=== PATIENT | male | born 1965 | race Caucasian/White ===

== ENCOUNTER 2020-06-20 20:33 | Observation (INO) | payer OTHER, SELFPAY ==
[2020-06-20 20:05] VITALS: BP 143/94; PULSE 95; RESP 18; TEMP 35.7; O2SAT 100
[2020-06-20 20:27] VITALS: BMI 32.9
--- NOTE | 2020-06-20 20:36 | EKG12_ITS ---
Test Reason : CP ADMIT Blood Pressure : / mmHG Vent. Rate : 082 BPM Atrial Rate : 082 BPM P-R Int : 170 ms QRS Dur : 100 ms QT Int : 372 ms P-R-T Axes : 041 -06 060 degrees QTc Int : 434 ms Normal sinus rhythm Normal ECG Confirmed by PEDRO BOO, ANTHONY ([id number]), continuity editor MARY JO MISTRY ([id number]) on 06/22/2020 10:10:24 AM Referred By: Irina Luis Confirmed By:ANTHONY VASQUEZ MD
--- NOTE | 2020-06-20 20:39 | PCM.HP.STD ---
[facility] - General General Date of Admission: 06/20/20 HPI Narrative REMINGTON ART, is a 55 M with a significant history of COPD and asthma; hypertension; CAD status post stent; and diabetes mellitus who was transferred from outside hospital because of abnormal stress test. Patient reports a history of MA requiring stents on January 25, 2017. He reported that in the last 2 to 3 months he has been having intermittent chest pain. 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 The chest pain was persistent. He works [place] the street from [facility] [employer] so he went to [employer] to be evalauted. He denies any aggravating factor to her chest pain. However reported that with rest his chest pain improved. Because of abnormal stress test the case was discussed with cardiology at [facility] who was ready to follow patient for possible heart cath. At the time of evaluation at our hospital and while at rest he had mild pain at the substernal area.. [facility] Medical History Asthma COPD (chronic obstructive pulmonary disease) Depression Home Medications aspirin 81 mg PO/SL DAILY 06/20/20 [History Last Taken 06/20/20 09:00] atorvastatin 40 mg PO/SL DAILY 06/20/20 [History Last Taken 06/20/20 09:00] clopidogrel 75 mg PO DAILY 06/20/20 [History Last Taken 06/20/20 09:00] glimepiride 2 mg PO/SL BID 06/20/20 [History Last Taken 06/20/20 09:00] losartan 50 mg PO DAILY 06/20/20 [History Last Taken 06/20/20 09:00] metformin 500 mg PO/SL DAILY 06/20/20 [History Last Taken 06/19/20 21:00] metoprolol tartrate 50 mg PO/SL BID 06/20/20 [History Last Taken 06/20/20 09:00] Allergy/AdvReac Type Severity Reaction Status Date / Time No Known Allergies Allergy Verified 06/20/20 21:04 Family History Father Cancer Surgical History Stented coronary artery no surgical history Social History Smoking Status: Former smoker ROS Constitutional Constitutional: Denies anorexia or change in weight Eyes Eyes: Denies change in vision or double vision ENT HEENT: Denies dysphagia or headache(s) Cardiovascular Cardiovascular: Reports chest pain and lightheadedness Respiratory/Chest Respiratory/Chest: Denies cough or productive cough Gastrointestinal Gastrointestinal: Denies abdominal pain, constipation or diarrhea Genitourinary Genitourinary: Denies burning urination or difficulty urinating Musculoskeletal Musculoskeletal: Denies arthralgias or back pain Neurologic Neurologic: Denies abnormal speech or confusion Psychiatric Psychiatric: Denies anxiety or depression Endocrine Endocrinology: Denies change in body appearance or cold intolerance Hematologic/Lymphatic Hematologic/Lymphatic: Denies easy bleeding or easy bruising Physical Exam Narrative Alert and oriented x3 Nontraumatic; normocephalic Dyspnea; lung clear to auscultate Heart sounds S1-S2. No murmur, gallop or rubs. Abdomen bowel sounds present soft, nontender nondistended Extremity without edema cyanosis or clubbing. Assessment & Plan Assessment/Plan (1) Unstable angina: Status: Acute Code(s): I20.0 - Unstable angina Plan: Place on a monitored bed at the PCU Reportedly with abnormal stress test at outside hospital. ASA 81 mg p.o. daily continued SL NTG 0.4 mg prn as needed for chest pain ordered We will check lipid panel. Statin: High intensity statin continued Anticoagulation: Started on heparin from outside hospital and continued Anti-P2Y12 Receptor antibody: Plavix continued Losartan metoprolol continued EKG taking on admission. EKG tracing with no ST or T wave abnormalities. Cardiology consult. (2) Diabetes: Status: Acute Code(s): E11.9 - Type 2 diabetes mellitus without complications Plan: Hold home Metformin and glimepiride in the setting of n.p.o. status and patient being at candidate of cardiac cath. Accu-Chek with correction scale insulin ordered. (3) HTN (hypertension): Status: Chronic Code(s): I10 - Essential (primary) hypertension Plan: Hypertension Blood pressure is not within goal Losartan and metoprolol continued. Trend blood pressure and adjust blood pressure medications. OBSV E&M: [id number] Initial observation care L3
[2020-06-20 20:47] VITALS: PULSE 86
[2020-06-20 21:55] VITALS: O2SAT 96
[2020-06-20 21:55] LABS: Partial Thromboplast Time 40.7 Seconds (24.1-36.2)
[2020-06-20 22:34] VITALS: PULSE 81
[2020-06-20] MEDS: Metoprolol Tartrate 50 MG Tablet PO (22:34)
[2020-06-20] MEDS: Heparin Injection (Vial) 5,000 UNIT/ML VIAL IV (22:36)
[2020-06-20 22:46] LABS: Bedside Glucose 105 mg/dL (70-110)
[2020-06-20] MEDS: HEPARIN/D5w 25,000 UNITS 25,000 UNITS/250 ML IV.SOLN. 12 UNITS IV (23:08)
[2020-06-21] VITALS (17 sets, daily range): BP systolic 97–128; BP diastolic 61–77; PULSE 72–84; RESP 16–18; TEMP 36.3–36.9; O2SAT 94–99
[2020-06-21 04:59] LABS: Absolute Lymphocyte Count 2.76 X10^3/uL (0.83-4.51); Absolute Neutrophil Count 3.5 X10^3/uL (2.0-7.7); Basophil# 0.07 X10^3/uL; Eosinophil# 0.14 X10^3/uL; Hematocrit 44.6 % (40-54); Hemoglobin 14.7 g/dL (13.0-16.5); Lymphocyte # 2.76 X10^3/ul (0.83-4.51); Lymphocyte % 39.3 % (19-41); Mean Corpuscular Hgb 29.8 pg (27.0-32.0); Mean Corpuscular Volume 90.5 fL (80-94); Mean Platelet Vol. 9.9 fl (6.2-12.0); Monocyte# 0.52 X10^3/uL; Monocyte% 7.4 % (0-10); NRBC Flagged by Analyzer 0 % (0-5); Neutrophil # 3.51 X10^3/uL (2.7-7.7); Platelet Count 223 K/mm3 (150-450); RBC Distribution Width CV 12.5 % (11.6-14.6); RBC Distribution Width SD 40.8 fl (35.1-43.9); Red Blood Count 4.93 M/mm3 (4.6-6.2)
[2020-06-21 05:08] LABS: Partial Thromboplast Time 57.6 Seconds (24.1-36.2)
[2020-06-21 05:14] LABS: Anion Gap 5 (5-15); BUN 17 mg/dL (7-18); BUN/Creat Ratio 19.4 RATIO (10-20); Calcium,Total 8.8 mg/dL (8.5-10.1); Chloride 106 mmol/L (98-107); Cholesterol 158 mg/dL (200); Creatinine, Serum 0.88 mg/dL (0.70-1.30); EST Glomerular Filtration Rate 97 mL/min (>60); Est Glom Filt Rate - Afr Amer 117 mL/min (>60); Estimated Creatinine Clearance 99.08 ml/min; Glucose 155 mg/dL (74-106); High Density Lipoprotein 36 mg/dL; Potassium 4.1 mmol/L (3.5-5.1); Sodium Level 138 mmol/L (136-145); Triglycerides 263 mg/dL; Very Low Density Lipoprotein 53 mg/dL (5-40)
--- NOTE | 2020-06-21 05:31 | RAD_ITS ---
STUDY: X-RAY CHEST REASON FOR EXAM: Male, 55 years old. Pre heart cath TECHNIQUE: Single AP portable view of the chest. COMPARISON: None. FINDINGS: EKG electrodes are seen. Hyperinflation. The lungs are clear. There is no demonstrated pleural abnormality. Normal size heart. Normal mediastinum and nakia. Normal visualized pulmonary arteries. Normal visualized aortic arch and descending thoracic aorta. Normal visualized thoracic spine. Normal visualized ribs, clavicles, and shoulders. There is no demonstrated abnormality of the visualized soft tissue structures of the upper abdomen. RAD/Chest 1 View (Portable) IMPRESSION: Hyperinflation. The lungs are clear. Electronically Signed: Francisco Javier Weiss MD at 9:22 EDT , Service support ,
--- NOTE | 2020-06-21 05:55 | EKG12_ITS ---
Test Reason : AM EKG Blood Pressure : / mmHG Vent. Rate : 084 BPM Atrial Rate : 084 BPM P-R Int : 164 ms QRS Dur : 098 ms QT Int : 378 ms P-R-T Axes : 044 -10 060 degrees QTc Int : 446 ms Normal sinus rhythm Low voltage QRS (Limb Leads) Confirmed by PEDRO BOO, ANTHONY ([id number]), tobacco cloth reclaimer MARY JO MISTRY ([id number]) on 06/22/2020 10:09:36 AM Referred By: Irina Luis Confirmed By:ANTHONY VASQUEZ MD
[2020-06-21] MEDS: Aspirin E.C. 81 MG Tablet PO (06:14)
[2020-06-21] MEDS: Losartan Potassium 50 MG Tablet PO (06:14)
[2020-06-21] MEDS: Metoprolol Tartrate 50 MG Tablet PO (06:15)
[2020-06-21] MEDS: Clopidogrel Bisulfate 75 MG Tablet PO (06:15)
--- NOTE | 2020-06-21 06:17 | NURSING ---
UNABLE TO SCAN MEDICATIONS AT THIS TIME, VERIFIED PT WITH MANUAL ENTRY AND CHECKED MEDICATIONS WITH MARY JO GIL RN
[2020-06-21 06:35] LABS: Bedside Glucose 169 mg/dL (70-110)
[2020-06-21] MEDS: 0.9% Saline Lock 10 ML Syringe IV (06:39)
--- NOTE | 2020-06-21 08:21 | PCM.CONS.C ---
Assessment & Plan Assessment/Plan (1) Unstable angina: Status: Acute Code(s): I20.0 - Unstable angina Plan: The patient presents with symptoms concerning for accelerating/unstable angina pectoris. His noninvasive valuation is as noted above. He has been recommended for further evaluation with diagnostic cardiac catheterization. The procedure and risk were discussed with him and he was agreeable to this approach. (2) CAD (coronary artery disease): Status: Acute Code(s): I25.10 - Atherosclerotic heart disease of [place] coronary artery without angina pectoris Plan: He does have a history of CAD. The details of his CAD are unknown at this time. He has undergone noninvasive valuation at an outside institution as noted. He presents now for further evaluation with diagnostic cardiac catheterization. In the interim he will continue medical therapy as deemed appropriate. (3) S/P PTCA (percutaneous transluminal coronary angioplasty): Status: Acute Code(s): Z98.61 - Coronary angioplasty status Plan: The details of his previous cardiac catheterization/PCI are unknown. A request will be made for copies of his outside medical records for continuity of care purposes. In the interim he will continue evaluation care as noted. (4) HLD (hyperlipidemia): Status: Acute Code(s): E78.5 - Hyperlipidemia, unspecified Plan: He states with the help of his PCP has done medical therapy including his lipid-lowering therapy. It would not be unreasonable to reevaluate his lipid labs as part of his evaluation process. (5) HTN (hypertension): Status: Chronic Code(s): I10 - Essential (primary) hypertension Plan: He does have a history of hypertension. He will need to continue medical therapy with adjustment as deemed appropriate. (6) Diabetes: Status: Acute Code(s): E11.9 - Type 2 diabetes mellitus without complications Plan: He does have a history of diabetes mellitus. He will continue evaluation care per internal medicine. His occasions may need to be adjusted temporarily based upon his evaluation with diagnostic cardiac catheterization. Addt'l Comments The above was discussed and reviewed with the patient and Dr. Simeon from interventional cardiology who had previously discussed the patient's case via telephone with his outside hospital physicians. This note was generated with [employer] software. It may contain incorrect words, spelling, and punctuation that were not noted in checking the note before signing. HPI Consult Data Date of Consult: 06/21/20 HPI Narrative HPI Narrative: REMINGTON ART, is a 55 white male who presents for a consultation based upon a history of underlying CAD status post PCI (2017 at [facility] in [place], [place]) superimposed upon hyperlipidemia, hypertension, diabetes mellitus who presents in transfer from [facility] in [place], [place] based upon an abnormal pharmacologic stress nuclear imaging study performed at that institution for referral for further evaluation with diagnostic cardiac catheterization. He states that while at work, manual labor, he was experiencing left-sided chest discomfort which was pressure/tightness which also involve the left upper extremity and involves shortness of breath/dyspnea. He did not have nausea, emesis, or diaphoresis. There was no near syncope or syncope. He states of interest he also noted discomfort in his left lower extremity. He subsequently presented to his outside hospital for further evaluation. He was monitored overnight. His cardiac enzymes were reported as negative. His ECG demonstrated sinus rhythm with no acute changes. A pharmacologic stress nuclear imaging study was performed which stated he had distal inferior and inferior apical changes concerning for myocardial ischemia. His gated LVEF was reported at 61%. He was recommended for transfer from their facility to [facility] in [place], [place] where he had his previous cardiac catheterization/PCI in 2017. However, he states there was no beds available at that institution. He notes after discussion with his local physicians arrangements were made to have him transferred to [facility] for further evaluation and care. He has denied orthopnea or PND or peripheral pitting edema. He denies palpitations. He states that he has been taking his medications through his PCP as he has not been following with a automobile rental representative based upon previous lack of insurance. He does not know the details of his previous PCI. His previous PCI report is unavailable for review at this time. Since being at [facility] he has had a repeat ECG. It demonstrated normal sinus rhythm with no acute ECG changes. [facility] Medical History (Updated 06/21/20 @ 08:[address] Gary Wray MD) Asthma CAD (coronary artery disease) COPD (chronic obstructive pulmonary disease) Depression HLD (hyperlipidemia) Home Medications aspirin 81 mg PO/SL DAILY 06/20/20 [History Last Taken 06/20/20 09:00] atorvastatin 40 mg PO/SL DAILY 06/20/20 [History Last Taken 06/20/20 09:00] clopidogrel 75 mg PO DAILY 06/20/20 [History Last Taken 06/20/20 09:00] glimepiride 2 mg PO/SL BID 06/20/20 [History Last Taken 06/20/20 09:00] losartan 50 mg PO DAILY 06/20/20 [History Last Taken 06/20/20 09:00] metformin 500 mg PO/SL DAILY 06/20/20 [History Last Taken 06/19/20 21:00] metoprolol tartrate 50 mg PO/SL BID 06/20/20 [History Last Taken 06/20/20 09:00] Allergy/AdvReac Type Severity Reaction Status Date / Time No Known Allergies Allergy Verified 06/20/20 21:04 Family History Father Cancer Surgical History (Updated 06/21/20 @ 08:[address] Gary Wray MD) S/P PTCA (percutaneous transluminal coronary angioplasty) Stented coronary artery Social History Smoking Status: Former smoker ROS Cardiovascular Cardiovascular: Reports as per HPI Physical Exam Const alert, oriented x3 and no apparent distress General Appearance: cooperative and comfortable Orientation / Consciousness: awake HEENT normocephalic, head/scalp atraumatic and hearing grossly normal bilaterally Head and Scalp: normal to inspection, normocephalic and atraumatic Eyes PERRL, EOMs intact bilaterally, conjunctivae normal and no scleral icterus General Eye: normal appearance of both eyes Neck full ROM Carotids: normal carotid upstroke Chest inspection of chest normal Resp normal respiratory effort Cardio regular rate, regular rhythm, S1 normal heart sound and S2 normal heart sound GI normal to inspection, nondistended, normoactive bowel sounds, soft to palpation and non-tender Skin no rashes or lesions noted Neuro oriented x3 and moves all extremities Sensorium / Orientation: awake and alert Lab / Micro Data Result Diagrams: 06/21/20 04:52 06/21/20 04:52 Labs: Laboratory Results - last 24 hr 06/20/20 06/20/20 06/21/20 21:35 22:24 04:52 WBC 7.0 RBC 4.93 Hgb 14.7 Hct 44.6 MCV 90.5 MCH 29.8 MCHC 33.0 RDW Std Deviation 40.8 RDW Coeff of Dylan 12.5 Plt Count 223 MPV 9.9 Immature Gran % (Auto) 0.300 Neut % (Auto) 50.0 Lymph % (Auto) 39.3 Karnes % (Auto) 7.4 Eos % (Auto) 2.0 Baso % (Auto) 1.0 Absolute Neuts (auto) 3.5 Absolute Lymphs (auto) 2.76 Nucleated RBC % 0 APTT 40.7 H Sodium Potassium Chloride Carbon Dioxide Anion Gap BUN Creatinine Estim Creat Clear Calc Est GFR (MDRD) Af Amer Est GFR (MDRD) Non-Af BUN/Creatinine Ratio Glucose Calcium Triglycerides Cholesterol LDL Cholesterol VLDL Cholesterol HDL Cholesterol POC Glucose 105 06/21/20 06/21/20 06/21/20 04:52 04:52 06:10 WBC RBC Hgb Hct MCV MCH MCHC RDW Std Deviation RDW Coeff of Dylan Plt Count MPV Immature Gran % (Auto) Neut % (Auto) Lymph % (Auto) Karnes % (Auto) Eos % (Auto) Baso % (Auto) Absolute Neuts (auto) Absolute Lymphs (auto) Nucleated RBC % APTT 57.6 H Sodium 138 Potassium 4.1 Chloride 106 Carbon Dioxide 27.0 Anion Gap 5 BUN 17 Creatinine 0.88 Estim Creat Clear Calc 99.08 Est GFR (MDRD) Af Amer 117 Est GFR (MDRD) Non-Af 97 BUN/Creatinine Ratio 19.4 Glucose 155 H Calcium 8.8 Triglycerides 263 H Cholesterol 158 LDL Cholesterol 69 VLDL Cholesterol 53 H HDL Cholesterol 36 L POC Glucose 169 H Procedure Criteria Procedure Type: Elective COVID Risk Discussion: The surgeon/proceduralist and patient have discussed in detail the risk of exposure to and/or potential harm posed by the COVID-19 virus with having a surgery/procedure at this time versus the risk of delaying the surgery/procedure. It is not possible to know either the risk of delaying the surgery or procedure or chance of getting an infection with perfect accuracy, but a joint decision was made between the patient and the surgeon/proceduralist to proceed at this time with the scheduled surgery/procedure as indicated on the consent form.
--- NOTE | 2020-06-21 09:02 | CASEMGMT ---
According to the [facility] website, the following tertiary facilities are in network: [facility], [place], [facility], [facility], [facility], [facility], [place], [facility] and .
--- NOTE | 2020-06-21 09:49 | ECHOCS_ITS ---
Reason For Study: CAD/ASHD Procedure This was a 2D Doppler, Color Flow transthoracic echocardiogram. The study was technically difficult. Dur to body habitus and COPD. Contrast injection was performed. Exam performed portable in patient room. Left Ventricle Based upon the 2D echocardiographic contrast enhanced images obtained there appears to be grossly normal left ventricular size, wall motion, and systolic function. The estimated ejection fraction is 65 %. No evidence for diastolic dysfunction. Right Ventricle Normal RV size. Normal systolic function. Atria Normal left atrium. Normal right atrium. No doppler evidence for ASD. Mitral Valve There is no mitral annular calcification. Normal mitral valve. Tricuspid Valve Normal tricuspid valve. Aortic Valve The aortic valve is not well visualized. Pulmonic Valve The pulmonic valve is not well visualized. Great Vessels The aortic root is not well visualized. Pericardium/Pleural No pericardial effusion. Medication Diluted definity 4.0ml given slow IV push to enhance endocardial definition. MMode/2D Measurements & Calculations LVIDd: 3.8 cm IVSd: 1.0 cm LAV(MOD-bp): 35.9 ml LVIDs: 2.6 cm LVPWd: 1.0 cm RVDd: 3.4 cm FS: 32.9 % LAV(MOD-bp) Indexed: 16.2 ml/m2 LAV(MOD-sp2): 33.5 ml LAV(MOD-sp4): 32.0 ml SV(MOD-sp4): 31.8 ml LVAd ap4: 23.9 cm2 LVAd ap2: 26.3 cm2 LVLd ap4: 8.6 cm LVLd ap2: 9.0 cm EDV(MOD-sp4): 53.8 ml EDV(MOD-sp2): 62.5 ml EDV(sp4-el): 56.3 ml EDV(sp2-el): 65.4 ml LVAs ap4: 14.7 cm2 LVAs ap2: 14.4 cm2 LVLs ap4: 8.1 cm LVLs ap2: 7.9 cm ESV(MOD-sp4): 22.0 ml ESV(MOD-sp2): 21.3 ml ESV(sp4-el): 22.6 ml ESV(sp2-el): 22.4 ml EF(MOD-sp4): 59.2 % EF(MOD-sp2): 65.9 % EF(sp4-el): 59.8 % SV(MOD-sp2): 41.2 ml SV(sp4-el): 33.6 ml LA A4 area: 12.9 cm2 RA A4 area: 10.2 cm2 Doppler Measurements & Calculations MV E max sameer: 63.8 cm/sec Lat Peak E' Sameer: 10.4 cm/sec Med Peak E' Sameer: 10.0 cm/sec MV A max sameer: 71.4 cm/sec E/E' lat: 6.1 E/E' med: 6.4 MV E/A: 0.89 Ao V2 max: 127.8 cm/sec LV V1 max: 107.2 cm/sec Ao max P.5 mmHg LV V1 max P.6 mmHg ECHO/Echo Complete W/ Contrast Interpretation Summary The study was technically difficult. Contrast injection was performed. Based upon the 2D echocardiographic contrast enhanced images obtained there kevin ears to be grossly normal left ventricular size, wall motion, and systolic function. The estimated ejection fraction is 65 %. No evidence for diastolic dysfunction. Ordering Physician: Gary Wray Referring Physician: Irina Luis Performed By: Luzmaria Castellanos, [id number], RVT
--- NOTE | 2020-06-21 09:58 | CL.D_ITS ---
Patient Name: REMINGTON ART Study Date: 06/21/2020 Performing: Gary Wray MD Ht: 70 inches 178 cm : 1965 Wt: 229.6 lbs 104 kg Age: 55 Gender: male BSA: 2.21 PROCEDURE(S) PERFORMED [id number]/LV CLINICAL PROFILE AND INDICATIONS Indications: Worsening Angina, Suspected CAD Heart Failure: None Stress/Imaging Date: 06/20/2020tress Test with SPECT MPI: Positive Intermediate Risk Angina Classification Anginal Classification w/in 2 Weeks: CCS III CAD Presentations: Unstable angina. CONCLUSIONS Elevated Left Ventricular End Diastolic Pressure Normal LV size, wall motion,and systolic function LVEF: by LV gram 65 % Mitral Valve Prolapse Mild RCA: stent: patent RECOMMENDATIONS Risk factor modification Medical therapy DESCRIPTION OF PROCEDURE The patient arrived to the procedure lab. The risks and benefits of the procedure as well as a full d escription of our services here and current unavailability of surgical backup were fully explained to the patient and/or their significant other prior to the catheterization. The Timeout was completed, verifying the correct patient and procedure. The patient's procedural site was prepped and draped in the usual fashion. Local anesthetic was given subcutaneously to right radial region with Lidocaine 2% . Using a modified Seldinger technique, arterial access was obtained via the right radial artery, a 6 Fr sheath was inserted. Left Coronary Artery selective angiography was performed in multiple views u sing a 5 Fr. 4.0 [place] catheter. Right Coronary Artery selective angiography was then performed in mu ltiple views using a 5 Fr. 4.0 [place] catheter. Left Ventriculography was performed in FRENCH projection using a 5 Fr. Pigtail catheter. LV to AO pullback pressures were then recorded.The arterial sheath was pulled and a TR Band was applied for hemostasis CORONARY ANGIOGRAPHY DOMINANCE: Right Dominant LEFT HEART ASSESSMENT Left Ventricular Ejection Fraction: by LV Gram 65 % Normal LV wall motion Elevated Left Ventricular End Diastolic Pressure LVEDP: 18 mmHg LEFT MAIN: Angiographically normal LEFT ANTERIOR DESCENDING ARTERY: Angiographically normal CIRCUMFLEX ARTERY: MID CIRC: Mild luminal irregularities RIGHT CORONARY ARTERY: PROX RCA: Previously placed stent is patent VALVE FINDINGS: Mitral Valve Prolapse Mild AORTIC ROOT: Angiographically normal COMPLICATIONS No Complications PROCEDURE MEDICATIONS Versed 1 mg IV Fentanyl 50 mcg IV Fentanyl 50 mcg IV Versed 1 mg IV Oxygen: 2 L/min via nasal cannula Heparin diluted in 23cc Heparinized saline. Patient given 10cc IA of this solution. 06/21/2020 09:14: 02 Verapamil 2.5mg, Ntg 100mcgs, 2000 units of Heparin diluted in 23cc Heparinized saline. Patient give n 10cc IA of this solution. 06/21/2020 09:14:02 SUMMARY OF HEMODYNAMIC DATA Time AIR REST ECG 08:55:59 AO 110/74 (88) SA 09:23:01 LV 126/-1, 16 09:28:12 LV 133/-2, 18 09:28:19 LV 128/4, 20 09:29:11 LV 133/0, 21 09:29:17 LVp 132/-3, 13 09:29:24 AOp 118/66 (87) 09:29:29 Signed By Gary Wray MD On 06/21/2020 09:57:11 Gary Wray MD
[2020-06-21] MEDS: 0.9% Normal Saline 1,000 ML 75 ML IV (10:09)
[2020-06-21] MEDS: Insulin Lispro 100 UNIT/ML INSULN.PEN SC (11:26)
[2020-06-21 11:37] LABS: Partial Thromboplast Time 29.2 Seconds (24.1-36.2)
[2020-06-21 11:55] LABS: Bedside Glucose 188 mg/dL (70-110)
--- NOTE | 2020-06-21 12:04 | DS.PCM_ITS ---
Documented by User: Dru MANCIA 06/21/20 15:54 Providers Date of Admission: 06/20/20 Primary Care Physician: No Primary Care Phys Consultations 06/20/20 20:36 Consult: Cardiology Routine Consulting Provider: Autumn Simeon Reason for Consult: Abnormal stress test EMERGENT Consult: No MD Notified: Yes Date Notified:: 06/20/20 Time Notified: 23:56 Method of Notification: Verbal Method of Consult:: In-Person Reason For Visit: UNSTABLE ANGINA Diagnosis Discharge Diagnosis (1) Unstable angina: Status: Acute Code(s): I20.0 - Unstable angina (2) CAD (coronary artery disease): Status: Acute Code(s): I25.10 - Atherosclerotic heart disease of [place] coronary artery without angina pectoris (3) S/P PTCA (percutaneous transluminal coronary angioplasty): Status: Acute Code(s): Z98.61 - Coronary angioplasty status (4) HLD (hyperlipidemia): Status: Acute Code(s): E78.5 - Hyperlipidemia, unspecified (5) HTN (hypertension): Status: Chronic Code(s): I10 - Essential (primary) hypertension (6) Diabetes: Status: Acute Code(s): E11.9 - Type 2 diabetes mellitus without complications Medications at Discharge Home Medications aspirin 81 mg PO/SL DAILY 06/20/20 atorvastatin 40 mg PO/SL DAILY 06/20/20 clopidogrel 75 mg PO DAILY 06/20/20 glimepiride 2 mg PO/SL BID 06/20/20 losartan 50 mg PO DAILY 06/20/20 metformin 500 mg PO/SL DAILY 06/20/20 metoprolol tartrate 50 mg PO/SL BID 06/20/20 Hospital Course Summary of Care Provided Minutes Spent on Discharge: 35 Hospital Course: Patient is a 55-year-old male who presented to the ED on 06/20/2020 with a chief complaint of abnormal stress test. Patient was admitted for work-up of unstable angina. Cardiac catheterization on 06/21/2020 demonstrat ed normal LV size/wall motion and systolic function, LVEF of 65%, elevated left ventricular end-diastolic pressure and mild mitral valve prolapse. Stent of the RCA placed in 2017 was patent. Echocardiogram results still pending. Risk factor modification and medical therapy, per cardiology. 1) Unstable angina Cardiac catheterization and echocardiogram as above. Lipid panel unremarkable. EKG on admission was NSR and demonstrated no ST or T wave abnormalities. Plan; continue aspirin, Plavix, losartan and metoprolol. Follow-up with cardiology within the next 2 weeks. 2) Diabetes Continue home Metformin and glimepiride on discharge. 3) Essential hypertension Stable, continue losartan and metoprolol. Patient seen by Dru Woody PA-C, under the supervision of Dr. Hassan. Physical Exam Const alert, oriented x3 and no apparent distress HEENT normocephalic and head/scalp atraumatic Eyes EOMs intact bilaterally Neck full ROM, no lymphadenopathy, supple and thyroid normal Chest inspection of chest normal Resp normal respiratory effort, normal air movement, no use of accessory muscles and clear to auscultation bilaterally Cardio regular rate, regular rhythm and no murmurs GI normal to inspection, nondistended, normoactive bowel sounds, non-tender and non-distended no CVA tenderness Back/Spine normal ROM and normal to inspection Extremity normal to inspection Skin no rashes or lesions noted and no wounds Neuro CN's II-XII intact bilaterally Psych mental status grossly normal ABG / Lab / Microbiology Data Result Diagrams: 06/21/20 04:52 06/21/20 04:52 Laboratory: Laboratory Results - last 24 hr 06/20/20 06/20/20 06/21/20 21:35 22:24 04:52 WBC 7.0 RBC 4.93 Hgb 14.7 Hct 44.6 MCV 90.5 MCH 29.8 MCHC 33.0 RDW Std Deviation 40.8 RDW Coeff of Dylan 12.5 Plt Count 223 MPV 9.9 Immature Gran % (Auto) 0.300 Neut % (Auto) 50.0 Lymph % (Auto) 39.3 [place] % (Auto) 7.4 Eos % (Auto) 2.0 Baso % (Auto) 1.0 Absolute Neuts (auto) 3.5 Absolute Lymphs (auto) 2.76 Nucleated RBC % 0 APTT 40.7 H Sodium Potassium Chloride Carbon Dioxide Anion Gap BUN Creatinine Estim Creat Clear Calc Est GFR (MDRD) Af Amer Est GFR (MDRD) Non-Af BUN/Creatinine Ratio Glucose Calcium Triglycerides Cholesterol LDL Cholesterol VLDL Cholesterol HDL Cholesterol POC Glucose 105 06/21/20 06/21/20 06/21/20 04:52 04:52 06:10 WBC RBC Hgb Hct MCV MCH MCHC RDW Std Deviation RDW Coeff of Dylan Plt Count MPV Immature Gran % (Auto) Neut % (Auto) Lymph % (Auto) [place] % (Auto) Eos % (Auto) Baso % (Auto) Absolute Neuts (auto) Absolute Lymphs (auto) Nucleated RBC % APTT 57.6 H Sodium 138 Potassium 4.1 Chloride 106 Carbon Dioxide 27.0 Anion Gap 5 BUN 17 Creatinine 0.88 Estim Creat Clear Calc 99.08 Est GFR (MDRD) Af Amer 117 Est GFR (MDRD) Non-Af 97 BUN/Creatinine Ratio 19.4 Glucose 155 H Calcium 8.8 Triglycerides 263 H Cholesterol 158 LDL Cholesterol 69 VLDL Cholesterol 53 H HDL Cholesterol 36 L POC Glucose 169 H 06/21/20 06/21/20 11:14 11:23 WBC RBC Hgb Hct MCV MCH MCHC RDW Std Deviation RDW Coeff of Dylan Plt Count MPV Immature Gran % (Auto) Neut % (Auto) Lymph % (Auto) [place] % (Auto) Eos % (Auto) Baso % (Auto) Absolute Neuts (auto) Absolute Lymphs (auto) Nucleated RBC % APTT 29.2 Sodium Potassium Chloride Carbon Dioxide Anion Gap BUN Creatinine Estim Creat Clear Calc Est GFR (MDRD) Af Amer Est GFR (MDRD) Non-Af BUN/Creatinine Ratio Glucose Calcium Triglycerides Cholesterol LDL Cholesterol VLDL Cholesterol HDL Cholesterol POC Glucose 188 H Radiography Diagnostic Testing: Radiology Impression Chest X-Ray 06/21/20 05:31 IMPRESSION: Hyperinflation. The lungs are clear. Electronically Signed: Francisco Javier Weiss MD at 9:22 EDT , Service support , Meaningful Use Info Meaningful Use Diagnoses (Choose all that apply): None applicable Discharge Plan Admission Admit Date/Time: 06/20/20 20:33 Primary Reason for Your Visit: Unspecified chest pain/ACS rule out Attending Provider: Jin Hassan Primary Care Provider: Care Physician,No Primary Consulting Providers: Autumn Simeon Instructions Patient Instructions: ED Chest Pain, Noncardiac Discharge Orders/Prescriptions Prescriptions: Continued losartan 50 mg Tablet 50 mg PO DAILY RF: 0 atorvastatin 40 mg PO/SL DAILY RF: 0 clopidogrel 75 mg Tablet 75 mg PO DAILY RF: 0 glimepiride 2 mg PO/SL BID RF: 0 metoprolol tartrate 50 mg PO/SL BID RF: 0 aspirin 81 mg PO/SL DAILY RF: 0 Held metformin 500 mg PO/SL DAILY RF: 0 Hold Instructions: Resume on 06/26/20. Referrals: Care Physician,No Primary [Primary Care Provider] - Within 2 Weeks Disposition Patient Disposition: Home, self care Documented by User: Dr. Jin Hassan DO 06/21/20 16:17 Providers Date of Admission: 06/20/20 Reason For Visit: UNSTABLE ANGINA Medications at Discharge Home Medications aspirin 81 mg PO/SL DAILY 06/20/20 atorvastatin 40 mg PO/SL DAILY 06/20/20 clopidogrel 75 mg PO DAILY 06/20/20 glimepiride 2 mg PO/SL BID 06/20/20 losartan 50 mg PO DAILY 06/20/20 metformin 500 mg PO/SL DAILY 06/20/20 metoprolol tartrate 50 mg PO/SL BID 06/20/20 Hospital Course Summary of Care Provided Minutes Spent on Discharge: 32 Hospital Course: 55-year-old male presents with chest pain. Patient had a abnormal stress test as outpatient. Given abnormal stress test, patient u nderwent a cardiac catheterization the and showed normal LV size and coronaries. Patient did have an echocardiogram, results still are pending at this time. Patient has remained stable. Patient had atypical chest pain noncardiac no evidence of myocardial infarction. Patient be discharged home in stable condition. Physical Exam Const alert General Appearance: cooperative Resp normal respiratory effort and clear to auscultation bilaterally Cardio regular rate, regular rhythm, S1 normal heart sound and S2 normal heart sound GI normal to inspection, nondistended, normoactive bowel sounds ABG / Lab / Microbiology Data Result Diagrams: 06/21/20 04:52 06/21/20 04:52 Meaningful Use Info Meaningful Use Diagnoses (Choose all that apply): None applicable Discharge Plan Admission Admit Date/Time: 06/20/20 20:33 Primary Reason for Your Visit: Unspecified chest pain/ACS rule out Attending Provider: Jin Hassan Primary Care Provider: Care Physician,No Primary Consulting Providers: Autumn Simeon Instructions Patient Instructions: ED Chest Pain, Noncardiac Discharge Orders/Prescriptions Prescriptions: Continued losartan 50 mg Tablet 50 mg PO DAILY RF: 0 atorvastatin 40 mg PO/SL DAILY RF: 0 clopidogrel 75 mg Tablet 75 mg PO DAILY RF: 0 glimepiride 2 mg PO/SL BID RF: 0 metoprolol tartrate 50 mg PO/SL BID RF: 0 aspirin 81 mg PO/SL DAILY RF: 0 Held metformin 500 mg PO/SL DAILY RF: 0 Hold Instructions: Resume on 06/26/20. Referrals: Care Physician,No Primary [Primary Care Provider] - Within 2 Weeks Disposition Patient Disposition: Home, self care OBSV E&M: [id number] Observation care discharge
--- NOTE | 2020-06-21 13:29 | PCM.DC ---
Discharge Instructions Outpatient Procedure Reason For Visit: UNSTABLE ANGINA Diet Discharge Diet: No restrictions Activity Discharge Activity: Return to Normal Activity Follow Up Care Please Follow Up With: Primary care physician When: Within the next two weeks. Test Results: Test results from this visit will be discussed in further detail at your follow-up appointment, if applicable. Discharge Plan Admission Admit Date/Time: 06/20/20 20:33 Primary Reason for Your Visit: Unspecified chest pain/ACS rule out Attending Provider: Jin Hassan Primary Care Provider: Care Physician,No Primary Consulting Providers: Autumn Simeon Instructions Patient Instructions: ED Chest Pain, Noncardiac Discharge Orders/Prescriptions Prescriptions: Continued losartan 50 mg Tablet 50 mg PO DAILY RF: 0 atorvastatin 40 mg PO/SL DAILY RF: 0 clopidogrel 75 mg Tablet 75 mg PO DAILY RF: 0 glimepiride 2 mg PO/SL BID RF: 0 metoprolol tartrate 50 mg PO/SL BID RF: 0 aspirin 81 mg PO/SL DAILY RF: 0 Held metformin 500 mg PO/SL DAILY RF: 0 Hold Instructions: Resume on 06/26/20. Referrals: Care Physician,No Primary [Primary Care Provider] - Within 2 Weeks Disposition Patient Disposition: Home, self care
== END 2020-06-21 15:52 | disposition home or self-care (01) ==
PROVIDERS: Hospitalist; Admitting Provider Hospitalist; Referring Provider Hospitalist
DX: I25.110 Atherosclerotic heart disease of native coronary artery with unstable angina pectoris (principal); E78.5 Hyperlipidemia, unspecified; I10 Essential (primary) hypertension; J44.9 Chronic obstructive pulmonary disease, unspecified; E11.9 Type 2 diabetes mellitus without complications; I25.2 Old myocardial infarction; Z95.5 Presence of coronary angioplasty implant and graft; Z79.899 Other long term (current) drug therapy; Z79.02 Long term (current) use of antithrombotics/antiplatelets; Z79.82 Long term (current) use of aspirin; Z79.84 Long term (current) use of oral hypoglycemic drugs; Z87.891 Personal history of nicotine dependence
CPT/HCPCS: 36415; 71045; 80048; 80061; 82962; 85025; 85730; 93005; 93306; 93458; 96365; 96366; 96376; 99152; 99153; 99218; J7030; Q9957; Q9967; A4216; C1769; C1894; C8929; G0378